=== PATIENT | male | born 1950 | race African-American/Black ===

== ENCOUNTER 2019-07-04 06:02 | Day surgery (SDC) | payer MEDICARE, MEDICAID ==
[2019-07-04] MEDS ORDERED: BUPIVACAINE HCL 0.5 % INJ/PF 30 ML SDV ONE (07:12)
[2019-07-04] MEDS ORDERED: EPINEPHRINE INJ/PF 1 MG/1 ML AMPULE ONE (07:12)
[2019-07-04 08:59] LABS: HEMATOCRIT 42.5 % (37.9-51.0); HEMOGLOBIN 14.1 g/dL (13.5-17.0); MEAN CORPUSCULAR HEMOGLOBIN 27.8 pg (27.0-33.4); MEAN CORPUSCULAR HGB CONC 33.1 g/dL (32.0-36.0); MEAN CORPUSCULAR VOLUME 84 fl (80-97); PLATELET COUNT 230 10^3/uL (150-450); RED BLOOD COUNT 5.06 10^6/uL (4.35-5.55); RED CELL DISTRIBUTION WIDTH 15.7 % (11.5-14.0); WHITE BLOOD COUNT 4.6 10^3/uL (4.0-10.5)
[2019-07-04 09:18] LABS: ANION GAP 9 (5-19); BLOOD UREA NITROGEN 5 mg/dL (7-20); CALCIUM 9.4 mg/dL (8.4-10.2); CARBON DIOXIDE 25 mmol/L (22-30); CHLORIDE 107 mmol/L (98-107); GLUCOSE 96 mg/dL (75-110); POTASSIUM 4.6 mmol/L (3.6-5.0)
[2019-07-04] MEDS ORDERED: RINGERS SOLUTION,LACTATED 1,000 ML IV ONE (11:00)
[2019-07-04] MEDS ORDERED: MIDAZOLAM 2 MG/2 ML INJ ONE (11:27)
[2019-07-04] MEDS ORDERED: FENTANYL CITRATE INJ/PF 100 MCG/2 ML AMPUL ONE (11:27)
[2019-07-04] MEDS ORDERED: HYDROMORPHONE HCL INJ/PF 2 MG/ML AMPULE ONE (11:27)
[2019-07-04] MEDS ORDERED: PROPOFOL INJ 200 MG/20 ML VIAL IV ONE (11:28)
[2019-07-04] MEDS ORDERED: ROCURONIUM BROMIDE INJ 50 MG/5 ML VIAL IV ONE (12:16)
[2019-07-04] MEDS ORDERED: ONDANSETRON HCL INJ/PF 4 MG/2 ML SDV ONE (12:16)
[2019-07-04] MEDS ORDERED: SUCCINYLCHOLINE CHLORIDE INJ 200 MG/10 ML VIAL ONE (12:16)
[2019-07-04] MEDS ORDERED: KETOROLAC TROMETHAMINE 60 MG/2 ML SDV ONE (12:16)
[2019-07-04] MEDS ORDERED: DEXAMETHASONE SOD PHOSPHATE INJ 4 MG/1 ML VIAL ONE (12:16)
[2019-07-04] MEDS ORDERED: CLINDAMYCIN 600 MG/D5W RTU 600 MG/50 ML RTUPB IV ONE (13:09)
[2019-07-04] MEDS ORDERED: MEPERIDINE HCL/PF INJ 25 MG/1 ML DISP.SYRIN IV PRN (13:51)
[2019-07-04] MEDS ORDERED: OXYCODONE-ACETAMINOPHEN 5-325 MG TABLET PO PRN ×3 (13:51→15:50)
[2019-07-04] MEDS ORDERED: FENTANYL CITRATE INJ/PF 100 MCG/2 ML AMPUL IV PRN ×3 (13:51)
[2019-07-04] MEDS ORDERED: MORPHINE SULFATE 10 MG/ML INJ IV PRN ×2 (13:51→15:50)
[2019-07-04] MEDS ORDERED: ONDANSETRON HCL INJ/PF 4 MG/2 ML SDV IV PRN ×2 (13:51→15:50)
[2019-07-04] MEDS ORDERED: DIPHENHYDRAMINE HCL 50 MG/ML VIAL IV PRN (13:51)
[2019-07-04] MEDS ORDERED: EPHEDRINE SULFATE INJ 50 MG/1 ML AMPULE ONE (15:07)
[2019-07-04] MEDS ORDERED: LIDOCAINE 2%/EPINEPHRINE INJ 20 ML VIAL ONE (15:23)
[2019-07-04] MEDS ORDERED: LIDOCAINE 2% INJ (20 MG/ML) 20 ML MDV ONE (15:23)
[2019-07-04] MEDS ORDERED: ROPIVACAINE HCL 0.5% INJ/PF (5 MG/1 ML) 30 ML SDV ONE (15:24)
--- NOTE | 2019-07-04 15:50 | Operative Report ---
Operative Report DATE OF SURGERY: 07/04/19 PREOPERATIVE DIAGNOSIS: Left shoulder high-grade partial-thickness rotator cuff tear, impingement syndrome, degenerative SLAP, AC DJD POSTOPERATIVE DIAGNOSIS: Same OPERATION: Left shoulder arthroscopy with rotator cuff repair, subacromial decompression/acromioplasty,distal clavicle excision, open subpectoral biceps tenodesis SURGEON: CRISTAL SIN ANESTHESIA: GA COMPLICATIONS: None ESTIMATED BLOOD LOSS: 10 cc PROCEDURE: Indication for above procedure: 68-year-old male with significant rotator cuff tear confirmed on MRI. Attempted conservative measures including physical therapy, anti-inflammatories injection without resolution of patient's symptoms at that point decision was made to proceed with operative intervention. Risk and benefits were explained patient verbalized understanding consented for surgical procedure. Procedure In Detail: Patient was seen and evaluated in the preoperative holding area. The LEFT upper extremity was initialized and marked. Patient received 2g of Ancef IV for bacterial prophylaxis. Patient was taken back to the operative room where transferred to the operative table and placed under general anesthesia. Once they were adequately anesthetized patient placed in the beachchair position. Cervical spine was placed in neutral position all bony prominences were padded including nonoperative upper extremity and bilateral lower extremity. A surgical team debriefing was performed ensuring all instrumentation was available, the surgical procedure was discussed with possible concerns reviewed. The upper extremity was prepped with ChloraPrep draped in a sterile fashion. A timeout was done identifying correct patient, procedure and extremity everyone in attendance agree with this and verbalized no concerns. Posterior portal was established arthroscope introduced into the glenohumeral joint. Via translation anterior portal established. Diagnostic arthroscopy demonstrated degenerative SLAP tear with anterior labral pathology. Mild degenerative changes along the inferior aspect of the glenoid. Subscapularis remained intact. There was central tear of the supraspinatus extending into the greater tuberosity however the anterior and posterior rotator cables remained intact. The undersurface the rotator cuff was debrided. Biceps tenotomy was performed to allow for later tenodesis. Partial synovectomy was performed. Arthroscopic camera was then placed into the subacromial space via triangulation lateral portal established. Subacromial decompression was then performed. Coracoacromial ligament was released but not excised and acromioplasty performed. Anterior portal utilized to perform distal clavicle excision. 8 mm of distal clavicle was resected with the remaining aspect resected via a Neviser's portal. The bursal side of the rotator cuff demonstrated small along the central portion which coincided with the articular sided tear thus this debrided. The greater tuberosity was debrided to normal cancellus bone. A passport cannula was placed in a fiber tape was placed anteriorly and posteriorly and fed through a swivel lock anchor and placed along the lateral row obtaining adequate fixation. There is no evidence of dogears or remaining connection with the glenohumeral joint. At the completion of the case portal holes were closed with interrupted 3-0 nylon suture. I then turned my attention to biceps tenodesis. Longitudinal skin incision was made along the inferior third of the pectoralis major. Blunt dissection was performed identifying the inferior border of the pectoralis major. Any peripheral vasculature was carefully coagulated. I then identified the tenotomized long head of the biceps which was retrieved and brought out the wound. The tendon was then secured 2 centimeters distal to the musculotendinous junction with a #2 fiber loop and the remaining diseased portion of the biceps was excised. The Arthrex biceps tenodesis button was then secured to my biceps tendon. Under direct visualization I then cleared an area along the anterior aspect of the humerus and drilled unicortically. The button was then placed into the unicortical hole and the biceps tendon was shuttled to the anterior cortex of the humerus. I then checked stability of the button confirming maximal fixation. Utilizing the free needle one limb of the remaining FiberWire was secured to the biceps providing further fixation. The elbow was then placed through range of motion to ensure appropriate tension of the biceps with flexion and extension. The wound was then copiously irrigated with normal saline. Any peripheral vasculature was carefully coagulated with Bovie cautery. Skin was closed a running subcuticular 4-0 Monocryl suture reinforced with Dermabond and Steri-Strips. Sponge counts, instrument counts, needle counts were correct. Patient was then awoken from anesthesia. Transferred from the operating room table to the operating room stretcher. There was no intraoperative complications patient tolerated procedure well stable to PACU. Postop plan: Patient will follow in the office in 2 weeks at which point we will proceed with suture removal and patient will be set up for outpatient physical therapy as per aggressive rotator cuff protocol.
--- NOTE | 2019-07-04 15:50 | Discharge Summary ---
Discharge Summary (SDC) - Discharge Final Diagnosis: Left rotator cuff tear Date of Surgery: 07/04/19 Discharge Date: 07/04/19 Condition: Good Treatment or Instructions: Schedule Follow Up w/ Dr. Ben Lao @ [facility] to be seen in 10-14 days or as scheduled [place]: [place]: [place]: May remove dressing on postop day #3, keep incision covered and dry. Cryocuff to shoulder May begin pendulum exercises along w/ hand, wrist and elbow range of motion 4x per day or as tolerated. May remove sling for hygiene purposes otherwise continue it at all times. Stool softener of choice when on pain medication. USE OF [id number] IBUPROFEN: Ibuprofen (Advil, Nuprin, Medipren, Motrin IB) is a medication for fever and pain control. In addition, it has anti- inflammatory effects which may be beneficial, especially in the treatment of injuries. It's best to take ibuprofen with food. Persons with ulcer disease or allergy to aspirin should notify their physician of this before taking ibuprofen. Ibuprofen can be given every four to six hours, for a total of four doses daily. Age Pain or fever dose Antiinflammatory dose 6-8 yr 200 mg (1 tab) 200 mg (1 tab) 9-11 yr 200 mg (1 tab) 200-400 mg (1-2 tab) 11-14 yr 200-400 mg (1-2 tab) 400 mg (2 tab) 15-adult 400 mg (2 tab) 600 mg (3 tab) ORAL NARCOTIC MEDICATION: You have been given a prescription for pain control. This medication is a narcotic. It's best taken with food, as nausea can result if taken on an empty stomach. Don't operate machinery or drive within six hours of taking this medication. Do not combine this medicine with alcohol, or with any medication which can cause sedation (such as cold tablets or sleeping pills) unless you get permission from the physician. Narcotics tend to cause constipation. If possible, drink plenty of fluids and eat a diet high in fiber and fruits. Please be aware that prescription narcotics also have the potential for abuse. People become addicted to these medications because of the general sense of wellbeing that they induce. This feeling along with a significant reduction in tension, anxiety, and aggression provides a stimulating seductive quality to these drugs. Once your pain is under control, we encourage you to discard your unused narcotics. Prescriptions: Ketorolac Tromethamine [Toradol 10 mg Tablet] 10 mg PO Q8HP PRN #12 tablet PRN Reason: Oxycodone HCl/Acetaminophen [Percocet 5-325 mg Tablet] 1 tab PO Q6 PRN #25 tab PRN Reason: Discharge Diet: As Tolerated Respiratory Treatments at Home: Deep Breathing/Coughing, Incentive Spirometer Discharge Activity: No Lifting Over 10 Pounds, No Lifting/Push/Pulling Report the Following to Your Physician Immediately: Fever over 101 Degrees, Unusual Bleeding, Redness, Swelling, Warmth, Increased Soreness
[2019-07-04 19:10] VITALS: BP 160/84
--- NOTE | 2019-07-04 20:55 | EKG REPORT ---
SEVERITY:- ABNORMAL ECG - SINUS RHYTHM LEFT ATRIAL ABNORMALITY : Confirmed by: Maxine Aceves MD 04-Jul-2019 20:54:23
== END 2019-07-04 18:45 | disposition home or self-care (01) ==
LOC: OROUT 06:02
PROVIDERS: ATTEND Orthopaedic Surgery
DX: M75.112 Incomplete rotator cuff tear or rupture of left shoulder, not specified as traumatic (principal); M75.42 Impingement syndrome of left shoulder; M19.012 Primary osteoarthritis, left shoulder; S43.432A Superior glenoid labrum lesion of left shoulder, initial encounter; X58.XXXA Exposure to other specified factors, initial encounter; M25.512 Pain in left shoulder; Z79.899 Other long term (current) drug therapy; Z88.0 Allergy status to penicillin
CPT/HCPCS: 36415; 85027; 80048; 93005; 93010; 29824; 29827; 29828; 29826; L3650; C1713 ×3; J2795; J2250; J3490 ×4; J1100; J0171; J1885; J3010; J1170; J0330; J2405; J2704